=== PATIENT | male | born 1955 | race Caucasian/White ===

== ENCOUNTER 2022-08-27 15:57 | Inpatient (IN) | payer MEDICARE, SELFPAY ==
[2022-08-27 14:40] VITALS: BP 122/77; PULSE 70; RESP 18; TEMP 36.5; O2SAT 100
[2022-08-27 17:22] VITALS: BMI 16.0
[2022-08-27 18:47] LABS: Hematocrit 43.3 % (42.0-52.0); Hemoglobin 14.8 g/dl (14.0-18.0); Mean Corpuscular HGB Conc 34.2 g/dl (31.0-36.0); Mean Corpuscular Hemoglobin 31.1 pg (27.0-33.0); Mean Platelet Volume 10.2 fL (9.4-12.4); Platelet Count 205 X10*3/uL (160-400); Red Blood Count 4.76 X10*6/uL (4.60-5.80); Red Cell Distribution Width 12.1 % (11.0-16.0); White Blood Count 7.2 X10*3/uL (4.8-10.8)
[2022-08-27 19:09] LABS: Alanine Aminotransferase 18 U/L (0-40); Albumin Level 3.9 g/dL (3.5-5.0); Alkaline Phosphatase 72 U/L (39-117); Anion Gap 11 (12-20); Aspartate Amino Transferase 19 U/L (5-37); Bilirubin Total 0.7 mg/dL (0.0-1.0); Blood Urea Nitrogen 24 mg/dL (9-16); Calcium 9.2 mg/dL (8.4-10.2); Carbon Dioxide 32 mmol/L (22-29); Chloride 104 mmol/L (96-108); Creatinine Clr Calc Pharmacy 50.5; Estimated Glomerular Filt Rate > 60; Glucose Random 141 mg/dL (60-115); Phosphorus 3.4 mg/dL (2.7-4.5); Potassium 4.2 mmol/L (3.3-5.1); Sodium 143 mmol/L (135-145); Total Protein 6.2 g/dL (6.5-8.0)
--- NOTE | 2022-08-27 19:10 | PC.ADMIT ---
Pt. arrived on unit at 1630 via stretcher accompanied by 2 EMS. Pt. admitted from [facility]. Pt. A & O X 4. Signed CV. Pt. had cared for his mother until her 3 years ago, and [place] and plans to visit the [facility] when the pandemic hit and disrupted those plans. He states that there was then one strain after another and he grew increasingly hopeless and began to drink alcohol to self medicate and stopped eating and drinking for several weeks and lost > 30 lbs. . He reports he stopped drinking when he became too weak to be able to drive to obtain liquor and began to sleep round the clock. Pt. reports his brother grew concerned and called for a wellness check on him and that was when EMS brought him to the ED. He has not taken prescription medications Pt. reports that he had falls stumbling on stairs at home when he was his weakest, but none on flat surfaces and none since. He walks independently without assistive devices. Pt. denies active SI. He denies AH/VH. Cousin Sarah Godfrey. updated about pt's admit per his request.
[2022-08-27 19:30] VITALS: BP 87/57; PULSE 81; RESP 16; TEMP 36.2; O2SAT 100
[2022-08-27] MEDS: Mirtazapine 15 MG TABLET PO (19:57)
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
[2022-08-28 06:00] VITALS: BP 127/77; PULSE 100; RESP 14; TEMP 36.5; O2SAT 100
[2022-08-28 07:05] LABS: Alanine Aminotransferase 20 U/L (0-40); Albumin Level 3.4 g/dL (3.5-5.0); Alkaline Phosphatase 62 U/L (39-117); Anion Gap 10 (12-20); Aspartate Amino Transferase 24 U/L (5-37); Bilirubin Total 0.9 mg/dL (0.0-1.0); Blood Urea Nitrogen 22 mg/dL (9-16); Carbon Dioxide 30 mmol/L (22-29); Chloride 106 mmol/L (96-108); Cholesterol 219 mg/dL; Creatinine Clr Calc Pharmacy 50.5; Estimated Glomerular Filt Rate > 60; Glucose Fasting 82 mg/dL (60-99); HDL Cholesterol 42 mg/dL; LDL Cholesterol Calculated 151 mg/dl; Potassium 4.1 mmol/L (3.3-5.1); Sodium 142 mmol/L (135-145); Total Protein 5.5 g/dL (6.5-8.0); Triglycerides 134 mg/dL
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
[2022-08-28] MEDS: Atorvastatin Calcium 20 MG TABLET PO (09:33)
[2022-08-28] MEDS: Cholecalciferol (Vitamin D3) 25 MCG TABLET PO (10:18)
[2022-08-28] MEDS: Multivitamin TABLET 1 TAB PO (10:20)
[2022-08-28] MEDS: hydrOXYzine HCL 25 MG TABLET PO (13:31)
[2022-08-28 18:00] VITALS: BP 95/61; PULSE 82; RESP 18; TEMP 36.6; O2SAT 97
[2022-08-28] MEDS: Mirtazapine 15 MG TABLET PO (20:17)
--- NOTE | 2022-08-29 06:46 | P.PNPSI_ITS ---
Subjective Subjective Date of Service: 08/29/22 Reason For Visit: Unspecified depressive disorder Subjective Notes: Gutierrez Warning and Conditional Voluntary Interim History: The nursing staff reported that the patient had been mostly seclusive in his room, anxious and dysphoric. He was fully compliant with his Remeron at night, he slept 8 hours. On interview the patient remains dysphoric, with lack of energy he looks in a seated since he has lost more than 30 lb in the last weeks. I encouraged him to eat more. Later, the staff reported the patient was extremely anxious and we needed order a low dose of Klonopin. Psycho education to his condition was pro vided. Mental Status Exam Mental Status Exam Patient Appearance: Appropriate Patient Orientation: Person and Situation Level of Consciousness: Awake and Appropriate Patient Behavior: Guarded and Passive Mood Description: Withdrawn and Depressed Affect Description: Constricted Ability to Follow Directions: Good Speech Pattern: Clear Hallucinations: None Delusions: Paranoid Ideation Thought Process: Distracted and Slowed Thinking Thought Content: positive for [place], positive for Circumstantial and positive for Poverty of Content Judgement: Poor Diagnostics Vital Signs (24Hr): Vital Signs - 24 hr 08/28/22 18:00 Temperature 97.9 F Pulse Rate 82 Respiratory Rate 18 Blood Pressure 95/61 Pulse Oximetry 97 Oxygen Delivery Method Room Air BMI result Body Mass Index 16.0 Labs 08/27/22 18:40 08/28/22 06:25 Labs: Laboratory Results - last 48 hr 08/27/22 08/27/22 08/28/22 18:40 18:40 06:25 WBC 7.2 RBC 4.76 Hgb 14.8 Hct 43.3 MCV 91.0 MCH 31.1 MCHC 34.2 RDW 12.1 Plt Count 205 MPV 10.2 Absolute Nucleated RBC 0.000 Nucleated RBC % (auto) 0.0 Sodium 143 142 Potassium 4.2 4.1 Chloride 104 106 Carbon Dioxide 32 H 30 H Anion Gap 11 L 10 L BUN 24 H 22 H Creatinine 0.85 0.85 Estim Creat Clear Calc 50.5 50.5 Estimated GFR > 60 > 60 Random Glucose 141 H Fasting Glucose 82 Calcium 9.2 9.0 Phosphorus 3.4 Total Bilirubin 0.7 0.9 AST 19 24 ALT 18 20 Alkaline Phosphatase 72 62 Total Protein 6.2 L 5.5 L Albumin 3.9 3.4 L Triglycerides 134 Cholesterol 219 LDL Cholesterol, Calc 151 HDL Cholesterol 42 Medications Medications Current Medications Acetaminophen (Acetaminophen 325 Mg Tablet) 650 mg PO Q6H PRN PRN Reason: Headache/Pain Mild Scale (1-3) Al Hydroxide/Mg Hydroxide (Magnesium Hydrox/Alum Hydrox 30 Ml Oral.Susp) 30 ml PO Q6H PRN PRN Reason: Heartburn/Nausea Atorvastatin Calcium (Atorvastatin Calcium 20 Mg Tablet) 20 mg PO DAILY [facility] Last Admin: 08/28/22 09:33 Dose: 20 mg Calcium Carbonate (Calcium Carbonate 500 Mg Tablet) 250 mg PO DAILY [facility] Last Admin: 08/28/22 09:33 Dose: 250 mg Hydroxyzine HCl (Hydroxyzine Hcl 25 Mg Tablet) 25 mg PO Q6H PRN PRN Reason: Anxiety Last Admin: 08/28/22 13:31 Dose: 25 mg Magnesium Hydroxide (Milk Of Magnesia 30 Ml Oral.Susp) 30 ml PO DAILY PRN PRN Reason: Constipation Mirtazapine (Mirtazapine 15 Mg Tablet) 15 mg PO BEDTIME [facility] Last Admin: 08/28/22 20:17 Dose: 15 mg Multivitamins/Vitamin C (Multivitamin Tablet) 1 tab PO DAILY [facility] Last Admin: 08/28/22 10:20 Dose: 1 tab Trazodone HCl (Trazodone Hcl 50 Mg Tablet) 50 mg PO BEDTIME PRN PRN Reason: Insomnia Vitamin D (Cholecalciferol (Vitamin D3) 25 Mcg Tablet) 25 mcg PO DAILY [facility] Last Admin: 08/28/22 10:18 Dose: 25 mcg Allergies Allergies Allergy/AdvReac Type Severity Reaction Status Date / Time No Known Allergies Allergy Verified 08/27/22 16:20 Assessment & Plan Assessment & Plan (1) Major depressive disorder, recurrent: Status: Acute Code(s): F33.9 - Major depressive disorder, recurrent, unspecified (2) Malnutrition: Status: Acute Code(s): E46 - Unspecified protein-calorie malnutrition Plan Pt is a 67-year-old male with a PMH significant for depression, glaucoma, and HLD who is seen for admission H&P. Malnutrition Pt stopped eating 4 weeks ago, losing 40lbs Restarted eating and drinking one small meal a day 6 days ago CBC, CMB Monitor lytes, especially phosphorus, as pt is in danger of refeeding syndrome Nutrition consult Encourage daily ambulation to rebuild lower body strength HLD Pt has stopped taking statin Lipid panel Glaucoma Pt no longer on meds Pt not complaining of ocular pain or vision changes, seems stable F/U outpatient with PCP Mental Health As per psychiatry plan Thank you for allowing me to participate in the care of this pt. We will follow for now pending labs and nutrition consult. Psychiatry Plan 1. Gather collateral information. 2. Continue Remeron 15 mg p.o. q.h.s. to target insomnia, depression and poor appetite. 3. At this moment we will not consider to use antipsychotics since he has started with Remeron. 4. Klonopin 0.5 p.o. t.i.d. p.r.n. severe anxiety. Patient educated on: diagnosis Informed Consent: understands Reason for contiued inpatient stay Substantial Risk for: harm to self, inability to function, rapid decompensation and med/psych decompensation Time Spent With Patient Time: Total time managing care of this patient today _20___ minutes.
[2022-08-29 07:30] VITALS: BP 134/84; PULSE 80; RESP 15; TEMP 36.4; O2SAT 99
[2022-08-29] MEDS: Cholecalciferol (Vitamin D3) 25 MCG TABLET PO (10:54)
[2022-08-29] MEDS: Multivitamin TABLET 1 TAB PO (10:54)
[2022-08-29] MEDS: Atorvastatin Calcium 20 MG TABLET PO (10:54)
[2022-08-29] MEDS: clonazePAM 0.5 MG TABLET PO (11:44)
[2022-08-29 12:47] VITALS: BMI 16.0
--- NOTE | 2022-08-29 13:00 | MHC.CLN ---
NUTRITION CONSULT FOR CACHEXIA AND HX POOR PO. DIET=REGULAR. VISITED PATIENT AT LUNCH. EATING SANDWICH AND APPEARS TO BE EATING WELL THIS LUNCH. STATED THAT DOES NOT WANT ENSURE SUPPLEMENT. ADVISED THAT HE CAN ASK FOR IT IF HE WOULD LIKE. STOPPED EATING APPROX 4 WEEKS PRIOR TO ADMISSION. DRINKING ALCOHOL. BECAME TOO WEAK TO LEAVE HOUSE. REPORTS 30-40# WEIGHT LOSS. STARTED EATING ONE SMALL MEAL PER DAY 6 DAYS PRIOR TO ADMISSION. NUTRITION DX NON SEVERE MALNUTRITION IN THE CONTEXT OF SOCIAL BEHAVIORAL/ENVIRONMENTAL CIRCUMSTANCES. FOLLOW FOR INTAKE AT MEALS AND WEIGHT. PROVIDE SUPPLEMENT DESIRED BY PATIENT.
[2022-08-29 18:00] VITALS: BP 94/60; PULSE 77; RESP 18; TEMP 36.1; O2SAT 97
[2022-08-29] MEDS: Mirtazapine 15 MG TABLET PO (20:36)
[2022-08-30 06:00] VITALS: BP 135/62; PULSE 78; RESP 16; TEMP 36.8; O2SAT 98
--- NOTE | 2022-08-30 07:43 | P.PNPSI_ITS ---
Subjective Subjective Date of Service: 08/30/22 Reason For Visit: Unspecified depressive disorder Subjective Notes: Conditional Voluntary Interim History: The nursing staff reported the patient was very anxious yesterday he needed Klonopin p.r.n. that worked very well. Still, he looks very dysphoric with lack of energy. On rounds, the 7th grade social studies teacher reported that the patient fell from a fishing scan, his e-mail and he froze his social security benefits and cancel his cards. His brother who lives in [place] was contacted and stated that he has been very anxious and sometimes he is unable to perform his ADL less and they are planning to sell the house so he can not live in an assisted living facility. It is clear that he has some psychotic behavior due to his anxiety but we are not going to start any antipsychotic at this moment and we will monitor his improvement with Remeron and Klonopin. On interview the patient reports a slightly better sleep but still very sad and depressed. He is able to contract for safety in the facility. Mental Status Exam Mental Status Exam Patient Appearance: Appropriate Patient Orientation: Person and Situation Level of Consciousness: Awake and Appropriate Patient Behavior: Guarded and Passive Mood Description: Withdrawn and Depressed Affect Description: Constricted Patient Cognition Impaired: Yes Ability to Follow Directions: Good Speech Pattern: Clear Hallucinations: None Delusions: Not Present Thought Process: Distracted and Slowed Thinking Thought Content: positive for [place] and positive for Circumstantial Judgement: Fair Diagnostics Vital Signs (24Hr): Vital Signs - 24 hr 08/29/22 18:00 Temperature 96.9 F Pulse Rate 77 Respiratory Rate 18 Blood Pressure 94/60 Pulse Oximetry 97 Oxygen Delivery Method Room Air BMI result Body Mass Index 16.0 Labs 08/27/22 18:40 08/28/22 06:25 Medications Medications Current Medications Acetaminophen (Acetaminophen 325 Mg Tablet) 650 mg PO Q6H PRN PRN Reason: Headache/Pain Mild Scale (1-3) Al Hydroxide/Mg Hydroxide (Magnesium Hydrox/Alum Hydrox 30 Ml Oral.Susp) 30 ml PO Q6H PRN PRN Reason: Heartburn/Nausea Atorvastatin Calcium (Atorvastatin Calcium 20 Mg Tablet) 20 mg PO DAILY [facility] Last Admin: 08/29/22 10:54 Dose: 20 mg Calcium Carbonate (Calcium Carbonate 500 Mg Tablet) 250 mg PO DAILY [facility] Last Admin: 08/29/22 10:54 Dose: 250 mg Clonazepam (Clonazepam 0.5 Mg Tablet) 0.5 mg PO TID PRN PRN Reason: severe anxiety Last Admin: 08/29/22 11:44 Dose: 0.5 mg Hydroxyzine HCl (Hydroxyzine Hcl 25 Mg Tablet) 25 mg PO Q6H PRN PRN Reason: Anxiety Last Admin: 08/28/22 13:31 Dose: 25 mg Magnesium Hydroxide (Milk Of Magnesia 30 Ml Oral.Susp) 30 ml PO DAILY PRN PRN Reason: Constipation Mirtazapine (Mirtazapine 15 Mg Tablet) 15 mg PO BEDTIME [facility] Last Admin: 08/29/22 20:36 Dose: 15 mg Multivitamins/Vitamin C (Multivitamin Tablet) 1 tab PO DAILY [facility] Last Admin: 08/29/22 10:54 Dose: 1 tab Trazodone HCl (Trazodone Hcl 50 Mg Tablet) 50 mg PO BEDTIME PRN PRN Reason: Insomnia Vitamin D (Cholecalciferol (Vitamin D3) 25 Mcg Tablet) 25 mcg PO DAILY [facility] Last Admin: 08/29/22 10:54 Dose: 25 mcg Allergies Allergies Allergy/AdvReac Type Severity Reaction Status Date / Time No Known Allergies Allergy Verified 08/27/22 16:20 Assessment & Plan Assessment & Plan (1) Major depressive disorder, recurrent: Status: Acute Code(s): F33.9 - Major depressive disorder, recurrent, unspecified (2) Malnutrition: Status: Acute Code(s): E46 - Unspecified protein-calorie malnutrition Plan Pt is a 67-year-old male with a PMH significant for depression, glaucoma, and HLD who is seen for admission H&P. Malnutrition Pt stopped eating 4 weeks ago, losing 40lbs Restarted eating and drinking one small meal a day 6 days ago CBC, CMB Monitor lytes, especially phosphorus, as pt is in danger of refeeding syndrome Nutrition consult Encourage daily ambulation to rebuild lower body strength HLD Pt has stopped taking statin Lipid panel Glaucoma Pt no longer on meds Pt not complaining of ocular pain or vision changes, seems stable F/U outpatient with PCP Mental Health As per psychiatry plan Thank you for allowing me to participate in the care of this pt. We will follow for now pending labs and nutrition consult. Psychiatry Plan 1. Gather collateral information. 2. Continue Remeron 15 mg p.o. q.h.s. to target insomnia, depression and poor ap petite. 3. At this moment we will not consider to use antipsychotics since he has started with Remeron. 4. Klonopin 0.5 p.o. t.i.d. p.r.n. severe anxiety. Reason for contiued inpatient stay Substantial Risk for: inability to function, rapid decompensation and med/psych decompensation Time Spent With Patient Time: Total time managing care of this patient today __20__ minutes.
[2022-08-30] MEDS: Cholecalciferol (Vitamin D3) 25 MCG TABLET PO (09:07)
[2022-08-30] MEDS: Atorvastatin Calcium 20 MG TABLET PO (09:07)
[2022-08-30] MEDS: Multivitamin TABLET 1 TAB PO (09:08)
[2022-08-30 18:00] VITALS: BP 112/64; PULSE 76; RESP 18; TEMP 36.4; O2SAT 98
[2022-08-30] MEDS: Mirtazapine 15 MG TABLET PO (20:16)
[2022-08-31 06:00] VITALS: BP 144/87; PULSE 94; RESP 16; TEMP 36.4; O2SAT 97
--- NOTE | 2022-08-31 08:12 | HO.PSYCHPN ---
Subjective Subjective Date of Service: 08/31/22 Reason For Visit: Unspecified depressive disorder Subjective Notes: Conditional Voluntary Interim History: The nursing staff reported that the patient slept well last night, he had been fully compliant with treatment. The occupational therapist reported that he attended to groups but he is very dysphoric. The hospital social worker reported that she contact her brother and apparently the furnace of his house is broken and they are going to fix it. We were asked not to tell him so he will not be more wore it. It seems that he gets very obsessive and even delusional due to his anxiety. On interview the patient denies new symptoms he slept well last night still very dysphoric. Mental Status Exam Mental Status Exam Patient Appearance: Appropriate Patient Orientation: Person, Place and Situation Level of Consciousness: Awake and Appropriate Patient Behavior: Guarded and Passive Mood Description: Withdrawn and Depressed Affect Description: Constricted Patient Cognition Impaired: Yes Ability to Follow Directions: Good Speech Pattern: Clear Hallucinations: None Delusions: Paranoid Ideation Thought Process: Distracted, Linear and Slowed Thinking Thought Content: positive for [place], positive for Circumstantial and positive for Poverty of Content Judgement: Fair Diagnostics Vital Signs (24Hr): Vital Signs - 24 hr 08/30/22 18:00 Temperature 97.5 F Pulse Rate 76 Respiratory Rate 18 Blood Pressure 112/64 Pulse Oximetry 98 Oxygen Delivery Method Room Air BMI result Body Mass Index 16.0 Labs 08/27/22 18:40 08/28/22 06:25 Medications Medications Current Medications Acetaminophen (Acetaminophen 325 Mg Tablet) 650 mg PO Q6H PRN PRN Reason: Headache/Pain Mild Scale (1-3) Al Hydroxide/Mg Hydroxide (Magnesium Hydrox/Alum Hydrox 30 Ml Oral.Susp) 30 ml PO Q6H PRN PRN Reason: Heartburn/Nausea Atorvastatin Calcium (Atorvastatin Calcium 20 Mg Tablet) 20 mg PO DAILY [facility] Last Admin: 08/30/22 09:07 Dose: 20 mg Calcium Carbonate (Calcium Carbonate 500 Mg Tablet) 250 mg PO DAILY [facility] Last Admin: 08/30/22 09:06 Dose: 250 mg Clonazepam (Clonazepam 0.5 Mg Tablet) 0.5 mg PO TID PRN PRN Reason: severe anxiety Last Admin: 08/29/22 11:44 Dose: 0.5 mg Hydroxyzine HCl (Hydroxyzine Hcl 25 Mg Tablet) 25 mg PO Q6H PRN PRN Reason: Anxiety Last Admin: 08/28/22 13:31 Dose: 25 mg Magnesium Hydroxide (Milk Of Magnesia 30 Ml Oral.Susp) 30 ml PO DAILY PRN PRN Reason: Constipation Mirtazapine (Mirtazapine 15 Mg Tablet) 15 mg PO BEDTIME [facility] Last Admin: 08/30/22 20:16 Dose: 15 mg Multivitamins/Vitamin C (Multivitamin Tablet) 1 tab PO DAILY [facility] Last Admin: 08/30/22 09:08 Dose: 1 tab Trazodone HCl (Trazodone Hcl 50 Mg Tablet) 50 mg PO BEDTIME PRN PRN Reason: Insomnia Vitamin D (Cholecalciferol (Vitamin D3) 25 Mcg Tablet) 25 mcg PO DAILY [facility] Last Admin: 08/30/22 09:07 Dose: 25 mcg Allergies Allergies Allergy/AdvReac Type Severity Reaction Status Date / Time No Known Allergies Allergy Verified 08/27/22 16:20 Assessment & Plan Assessment & Plan (1) Major depressive disorder, recurrent: Status: Acute Code(s): F33.9 - Major depressive disorder, recurrent, unspecified (2) Malnutrition: Status: Acute Code(s): E46 - Unspecified protein-calorie malnutrition Plan Pt is a 67-year-old male with a PMH significant for depression, glaucoma, and HLD who is seen for admission H&P. Malnutrition Pt stopped eating 4 weeks ago, losing 40lbs Restarted eating and drinking one small meal a day 6 days ago CBC, CMB Monitor lytes, especially phosphorus, as pt is in danger of refeeding syndrome Nutrition consult Encourage daily ambulation to rebuild lower body strength HLD Pt has stopped taking statin Lipid panel Glaucoma Pt no longer on meds Pt not complaining of ocular pain or vision changes, seems stable F/U outpatient with PCP Mental Health As per psychiatry plan Thank you for allowing me to participate in the care of this pt. We will follow for now pending labs and nutrition consult. Psychiatry Plan 1. Gather collateral information. 2. Continue Remeron 15 mg p.o. q.h.s. to target insomnia, depression and poor appetite. 3. At this moment we will not consider to use antipsychotics since he has started with Remeron. 4. Klonopin 0.5 p.o. t.i.d. p.r.n. severe anxiety. Reason for contiued inpatient stay Substantial Risk for: inability to function, rapid decompensation and med/psych decompensation Time Spent With Patient Time: Total time managing care of this patient today __20__ minutes.
[2022-08-31] MEDS: Atorvastatin Calcium 20 MG TABLET PO (11:05)
[2022-08-31] MEDS: Cholecalciferol (Vitamin D3) 25 MCG TABLET PO (11:06)
[2022-08-31] MEDS: Multivitamin TABLET 1 TAB PO (11:06)
--- NOTE | 2022-08-31 13:35 | MHC.CLN ---
NUTRITION DIET=REGULAR. VISITED PATIENT AT LUNCH. STATED THAT ATE A TUNA SANDWICH. STATED THAT DOES NOT WANT ENSURE SUPPLEMENT. NUTRITION DX NON SEVERE MALNUTRITION IN THE CONTEXT OF SOCIAL BEHAVIORAL/ENVIRONMENTAL CIRCUMSTANCES. FOLLOW FOR INTAKE AND WEIGHT.
[2022-08-31 18:00] VITALS: BP 110/60; PULSE 85; RESP 16; TEMP 36.3; O2SAT 100
[2022-08-31] MEDS: Mirtazapine 15 MG TABLET PO (21:10)
[2022-09-01 06:00] VITALS: BP 132/80; PULSE 92; RESP 16; TEMP 36.4; O2SAT 92
[2022-09-01 07:00] VITALS: BMI 16.7
--- NOTE | 2022-09-01 07:55 | P.PNPSI_ITS ---
Subjective Subjective Date of Service: 09/01/22 Reason For Visit: Unspecified depressive disorder Subjective Notes: Conditional Voluntary Interim History: The nursing staff reported the patient had been compliant with treatment, he slept well last night. The staff has noticed that he attends to some groups and he participates, his anxiety looks a little better. The social security specialist reported that his brother from [place] is making arrangements to fix the furnace of the house. We will have a family meeting tomorrow over the phone or Zoom. On interview the patient reports improvement but still he is anxious. Mental Status Exam Mental Status Exam Patient Appearance: Appropriate Patient Orientation: Person and Situation Level of Consciousness: Awake and Appropriate Patient Behavior: Guarded and Passive Mood Description: Depressed Affect Description: Constricted Patient Cognition Impaired: Yes Ability to Follow Directions: Good Speech Pattern: Clear Hallucinations: None Delusions: Paranoid Ideation Thought Process: Evasive and Slowed Thinking Thought Content: positive for [place], positive for Circumstantial and positive for Poverty of Content Judgement: Fair Diagnostics Vital Signs (24Hr): Vital Signs - 24 hr 08/31/22 18:00 Temperature 97.4 F Pulse Rate 85 Respiratory Rate 16 Blood Pressure 110/60 Pulse Oximetry 100 Oxygen Delivery Method Room Air BMI result Body Mass Index 16.0 Labs 08/27/22 18:40 08/28/22 06:25 Medications Medications Current Medications Acetaminophen (Acetaminophen 325 Mg Tablet) 650 mg PO Q6H PRN PRN Reason: Headache/Pain Mild Scale (1-3) Al Hydroxide/Mg Hydroxide (Magnesium Hydrox/Alum Hydrox 30 Ml Oral.Susp) 30 ml PO Q6H PRN PRN Reason: Heartburn/Nausea Atorvastatin Calcium (Atorvastatin Calcium 20 Mg Tablet) 20 mg PO DAILY [facility] Last Admin: 08/31/22 11:05 Dose: 20 mg Calcium Carbonate (Calcium Carbonate 500 Mg Tablet) 250 mg PO DAILY [facility] Last Admin: 08/31/22 11:06 Dose: 250 mg Clonazepam (Clonazepam 0.5 Mg Tablet) 0.5 mg PO TID PRN PRN Reason: severe anxiety Last Admin: 08/29/22 11:44 Dose: 0.5 mg Hydroxyzine HCl (Hydroxyzine Hcl 25 Mg Tablet) 25 mg PO Q6H PRN PRN Reason: Anxiety Last Admin: 08/28/22 13:31 Dose: 25 mg Magnesium Hydroxide (Milk Of Magnesia 30 Ml Oral.Susp) 30 ml PO DAILY PRN PRN Reason: Constipation Mirtazapine (Mirtazapine 15 Mg Tablet) 15 mg PO BEDTIME [facility] Last Admin: 08/31/22 21:10 Dose: 15 mg Multivitamins/Vitamin C (Multivitamin Tablet) 1 tab PO DAILY [facility] Last Admin: 08/31/22 11:06 Dose: 1 tab Trazodone HCl (Trazodone Hcl 50 Mg Tablet) 50 mg PO BEDTIME PRN PRN Reason: Insomnia Vitamin D (Cholecalciferol (Vitamin D3) 25 Mcg Tablet) 25 mcg PO DAILY [facility] Last Admin: 08/31/22 11:06 Dose: 25 mcg Allergies Allergies Allergy/AdvReac Type Severity Reaction Status Date / Time No Known Allergies Allergy Verified 08/27/22 16:20 Assessment & Plan Assessment & Plan (1) Major depressive disorder, recurrent: Status: Acute Code(s): F33.9 - Major depressive disorder, recurrent, unspecified (2) Malnutrition: Status: Acute Code(s): E46 - Unspecified protein-calorie malnutrition Plan Pt is a 67-year-old male with a PMH significant for depression, glaucoma, and HLD who is seen for admission H&P. Malnutrition Pt stopped eating 4 weeks ago, losing 40lbs Restarted eating and drinking one small meal a day 6 days ago CBC, CMB Monitor lytes, especially phosphorus, as pt is in danger of refeeding syndrome Nutrition consult Encourage daily ambulation to rebuild lower body strength HLD Pt has stopped taking statin Lipid panel Glaucoma Pt no longer on meds Pt not complaining of ocular pain or vision changes, seems stable F/U outpatient with PCP Mental Health As per psychiatry plan Thank you for allowing me to participate in the care of this pt. We will follow for now pending labs and nutrition consult. Psychiatry Plan 1. Gather collateral information. 2. Continue Remeron 15 mg p.o. q.h.s. to target insomnia, depression and poor appetite. 3. At this moment we will not consider to use antipsychotics since he has started with Remeron. 4. Klonopin 0.5 p.o. t.i.d. p.r.n. severe anxiety. Reason for contiued inpatient stay Substantial Risk for: inability to function, rapid decompensation and med/psych decompensation Time Spent With Patient Time: Total time managing care of this patient today __20__ minutes.
[2022-09-01] MEDS: Multivitamin TABLET 1 TAB PO (09:13)
[2022-09-01] MEDS: Atorvastatin Calcium 20 MG TABLET PO (09:13)
[2022-09-01] MEDS: Cholecalciferol (Vitamin D3) 25 MCG TABLET PO (09:15)
[2022-09-01] MEDS: clonazePAM 0.5 MG TABLET PO (14:58)
[2022-09-01 18:00] VITALS: BP 110/70; PULSE 69; RESP 18; TEMP 36.1; O2SAT 100
[2022-09-01] MEDS: Mirtazapine 15 MG TABLET PO (20:20)
[2022-09-02 07:30] VITALS: BP 123/71; PULSE 93; RESP 18; TEMP 36.4; O2SAT 100
[2022-09-02] MEDS: Atorvastatin Calcium 20 MG TABLET PO (09:44)
[2022-09-02] MEDS: Multivitamin TABLET 1 TAB PO (09:45)
[2022-09-02] MEDS: Cholecalciferol (Vitamin D3) 25 MCG TABLET PO (09:45)
--- NOTE | 2022-09-02 14:31 | P.PNPSI_ITS ---
Subjective Subjective Date of Service: 09/02/22 Reason For Visit: Unspecified depressive disorder Subjective Notes: Conditional Voluntary Interim History: The nursing staff reported the patient requested Klonopin yesterday. He was seen more visible in the unit, participating in groups but very anxious. The psychiatric social worker reported that the patient was so anxious that he could not even answer or fill paperwork. His brother reported that they are going to try to help him. They had a family meeting over the phone today Today, he was assessed and he reported that he is less anxious but still nonfunctional. He agreed to change Klonopin as standing and keep the p.r.n. Mental Status Exam Mental Status Exam Patient Appearance: Appropriate Patient Orientation: Person and Situation Level of Consciousness: Awake and Appropriate Patient Behavior: Guarded and Passive Mood Description: Withdrawn Affect Description: Constricted Patient Cognition Impaired: Yes Ability to Follow Directions: Good Speech Pattern: Clear Hallucinations: None Delusions: Not Present Thought Process: Distracted and Slowed Thinking Thought Content: positive for Thought Blocking Judgement: Poor Diagnostics Vital Signs (24Hr): Vital Signs - 24 hr 09/01/22 18:00 09/02/22 07:30 Temperature 96.9 F 97.5 F Pulse Rate 69 93 Respiratory Rate 18 18 Blood Pressure 110/70 123/71 Pulse Oximetry 100 100 Oxygen Delivery Method Room Air Room Air BMI result Body Mass Index 16.7 Labs 08/27/22 18:40 08/28/22 06:25 Medications Medications Current Medications Acetaminophen (Acetaminophen 325 Mg Tablet) 650 mg PO Q6H PRN PRN Reason: Headache/Pain Mild Scale (1-3) Al Hydroxide/Mg Hydroxide (Magnesium Hydrox/Alum Hydrox 30 Ml Oral.Susp) 30 ml PO Q6H PRN PRN Reason: Heartburn/Nausea Atorvastatin Calcium (Atorvastatin Calcium 20 Mg Tablet) 20 mg PO DAILY [facility] Last Admin: 09/02/22 09:44 Dose: 20 mg Calcium Carbonate (Calcium Carbonate 500 Mg Tablet) 250 mg PO DAILY [facility] Last Admin: 09/02/22 09:44 Dose: 250 mg Clonazepam (Clonazepam 0.5 Mg Tablet) 0.5 mg PO TID PRN PRN Reason: severe anxiety Last Admin: 09/01/22 14:58 Dose: 0.5 mg Hydroxyzine HCl (Hydroxyzine Hcl 25 Mg Tablet) 25 mg PO Q6H PRN PRN Reason: Anxiety Last Admin: 08/28/22 13:31 Dose: 25 mg Magnesium Hydroxide (Milk Of Magnesia 30 Ml Oral.Susp) 30 ml PO DAILY PRN PRN Reason: Constipation Mirtazapine (Mirtazapine 15 Mg Tablet) 15 mg PO BEDTIME [facility] Last Admin: 09/01/22 20:20 Dose: 15 mg Multivitamins/Vitamin C (Multivitamin Tablet) 1 tab PO DAILY [facility] Last Admin: 09/02/22 09:45 Dose: 1 tab Trazodone HCl (Trazodone Hcl 50 Mg Tablet) 50 mg PO BEDTIME PRN PRN Reason: Insomnia Vitamin D (Cholecalciferol (Vitamin D3) 25 Mcg Tablet) 25 mcg PO DAILY [facility] Last Admin: 09/02/22 09:45 Dose: 25 mcg Allergies Allergies Allergy/AdvReac Type Severity Reaction Status Date / Time No Known Allergies Allergy Verified 08/27/22 16:20 Assessment & Plan Assessment & Plan (1) Major depressive disorder, recurrent: Status: Acute Code(s): F33.9 - Major depressive disorder, recurrent, unspecified (2) Malnutrition: Status: Acute Code(s): E46 - Unspecified protein-calorie malnutrition Plan Pt is a 67-year-old male with a PMH significant for depression, glaucoma, and HLD who is seen for admission H&P. Malnutrition Pt stopped eating 4 weeks ago, losing 40lbs Restarted eating and drinking one small meal a day 6 days ago CBC, CMB Monitor lytes, especially phosphorus, as pt is in danger of refeeding syndrome Nutrition consult Encourage daily ambulation to rebuild lower body strength HLD Pt has stopped taking statin Lipid panel Glaucoma Pt no longer on meds Pt not complaining of ocular pain or vision changes, seems stable F/U outpatient with PCP Mental Health As per psychiatry plan Thank you for allowing me to participate in the care of this pt. We will follow for now pending labs and nutrition consult. Psychiatry Plan 1. Gather collateral information. 2. Continue Remeron 15 mg p.o. q.h.s. to target insomnia, depression and poor appetite. 3. At this moment we will not consider to use antipsychotics since he has started with Remeron. 4. Klonopin 0.5 p.o. t.i.d. p.r.n. severe anxiety. 5. Klonopin 0.25 p.o. t.i.d. standing Reason for contiued inpatient stay Substantial Risk for: inability to function, rapid decompensation and med/psych decompensation Time Spent With Patient Time: Total time managing care of this patient today __20__ minutes.
--- NOTE | 2022-09-02 15:09 | MHC.CLN ---
F/U DIET=REGULAR. VISITED PATIENT AT LUNCH. APPEARS TO BE ORDERING SMALL AMOUNTS OF FOOD. ATE 100% OF FOODS AT LUNCH. SHOWS FAVORABLE WEIGHT GAIN SINCE ADMISSION, +4.7%. FOLLOW FOR INTAKE AND WEIGHT.
[2022-09-02 18:00] VITALS: BP 140/74; PULSE 90; RESP 18; TEMP 36.4; O2SAT 97
[2022-09-02] MEDS: Mirtazapine 15 MG TABLET PO (21:03)
[2022-09-03] MEDS: Atorvastatin Calcium 20 MG TABLET PO (09:25)
[2022-09-03] MEDS: Multivitamin TABLET 1 TAB PO (09:26)
[2022-09-03] MEDS: Cholecalciferol (Vitamin D3) 25 MCG TABLET PO (09:26)
[2022-09-03 09:29] VITALS: BP 127/70; PULSE 89; RESP 18; TEMP 36.4; O2SAT 99
--- NOTE | 2022-09-03 11:56 | P.PNPSI_ITS ---
Subjective Subjective Date of Service: 09/03/22 Reason For Visit: Unspecified depressive disorder Interim History: pt found reading and edward pepper book in the milieu. states he is doing a lot better. denies SI. no requests or complaints. per staff, depressed and anxious. slept 8 hours. ambivalent relationship to food. Mental Status Exam Mental Status Exam Patient Appearance: Appropriate Patient Orientation: Person and Situation Level of Consciousness: Awake and Appropriate Patient Behavior: Guarded and Passive Mood Description: Withdrawn Affect Description: Constricted Patient Cognition Impaired: Yes Ability to Follow Directions: Good Speech Pattern: Clear Hallucinations: None Delusions: Not Present Thought Process: Distracted and Slowed Thinking Thought Content: positive for Thought Blocking Judgement: Poor Diagnostics Vital Signs (24Hr): Vital Signs - 24 hr 09/02/22 18:00 09/03/22 09:29 Temperature 97.5 F 97.5 F Pulse Rate 90 89 Respiratory Rate 18 18 Blood Pressure 140/74 H 127/70 Pulse Oximetry 97 99 Oxygen Delivery Method Room Air Room Air BMI result Body Mass Index 16.7 Labs 08/27/22 18:40 08/28/22 06:25 Medications Medications Current Medications Acetaminophen (Acetaminophen 325 Mg Tablet) 650 mg PO Q6H PRN PRN Reason: Headache/Pain Mild Scale (1-3) Al Hydroxide/Mg Hydroxide (Magnesium Hydrox/Alum Hydrox 30 Ml Oral.Susp) 30 ml PO Q6H PRN PRN Reason: Heartburn/Nausea Atorvastatin Calcium (Atorvastatin Calcium 20 Mg Tablet) 20 mg PO DAILY [facility] Last Admin: 09/03/22 09:25 Dose: 20 mg Calcium Carbonate (Calcium Carbonate 500 Mg Tablet) 250 mg PO DAILY [facility] Last Admin: 09/03/22 09:25 Dose: 250 mg Clonazepam (Clonazepam 0.5 Mg Tablet) 0.5 mg PO TID PRN PRN Reason: severe anxiety Last Admin: 09/01/22 14:58 Dose: 0.5 mg Clonazepam (Clonazepam 0.125 Mg Tab.Rapdis) 0.25 mg PO TID [facility] Last Admin: 09/03/22 09:25 Dose: 0.25 mg Hydroxyzine HCl (Hydroxyzine Hcl 25 Mg Tablet) 25 mg PO Q6H PRN PRN Reason: Anxiety Last Admin: 08/28/22 13:31 Dose: 25 mg Magnesium Hydroxide (Milk Of Magnesia 30 Ml Oral.Susp) 30 ml PO DAILY PRN PRN Reason: Constipation Mirtazapine (Mirtazapine 15 Mg Tablet) 15 mg PO BEDTIME [facility] Last Admin: 09/02/22 21:03 Dose: 15 mg Multivitamins/Vitamin C (Multivitamin Tablet) 1 tab PO DAILY [facility] Last Admin: 09/03/22 09:26 Dose: 1 tab Trazodone HCl (Trazodone Hcl 50 Mg Tablet) 50 mg PO BEDTIME PRN PRN Reason: Insomnia Vitamin D (Cholecalciferol (Vitamin D3) 25 Mcg Tablet) 25 mcg PO DAILY [facility] Last Admin: 09/03/22 09:26 Dose: 25 mcg Allergies Allergies Allergy/AdvReac Type Severity Reaction Status Date / Time No Known Allergies Allergy Verified 08/27/22 16:20 Assessment & Plan Assessment & Plan (1) Major depressive disorder, recurrent: Status: Acute Code(s): F33.9 - Major depressive disorder, recurrent, unspecified (2) Malnutrition: Status: Acute Code(s): E46 - Unspecified protein-calorie malnutrition Plan Pt is a 67-year-old male with a PMH significant for depression, glaucoma, and HLD who is seen for admission H&P. Malnutrition Pt stopped eating 4 weeks ago, losing 40lbs Restarted eating and drinking one small meal a day 6 days ago CBC, CMB Monitor lytes, especially phosphorus, as pt is in danger of refeeding syndrome Nutrition consult Encourage daily ambulation to rebuild lower body strength HLD Pt has stopped taking statin Lipid panel Glaucoma Pt no longer on meds Pt not complaining of ocular pain or vision changes, seems stable F/U outpatient with PCP Mental Health As per psychiatry plan Thank you for allowing me to participate in the care of this pt. We will follow for now pending labs and nutrition consult. Psychiatry Plan 1. Gather collateral information. 2. Continue Remeron 15 mg p.o. q.h.s. to target insomnia, depression and poor appetite. 3. At this moment we will not consider to use antipsychotics since he has started with Remeron. 4. Klonopin 0.5 p.o. t.i.d. p.r.n. severe anxiety. 5. Klonopin 0.25 p.o. t.i.d. standing 2/4: no change in mgmt. feeling a lot better, denies SI. Reason for contiued inpatient stay Substantial Risk for: inability to function and rapid decompensation Time Spent With Patient Time: Total time managing care of this patient today ____ minutes.
[2022-09-03 18:00] VITALS: BP 120/71; PULSE 74; RESP 18; TEMP 36.6; O2SAT 100
[2022-09-03] MEDS: Mirtazapine 15 MG TABLET PO (20:34)
[2022-09-04 06:00] VITALS: BP 129/70; PULSE 79; RESP 18; TEMP 35.9; O2SAT 98
[2022-09-04] MEDS: Atorvastatin Calcium 20 MG TABLET PO (08:54)
[2022-09-04] MEDS: Cholecalciferol (Vitamin D3) 25 MCG TABLET PO (08:54)
[2022-09-04] MEDS: Multivitamin TABLET 1 TAB PO (08:55)
--- NOTE | 2022-09-04 11:11 | HO.PSYCHPN ---
Subjective Subjective Date of Service: 09/04/22 Reason For Visit: Unspecified depressive disorder Interim History: calm, cooperative. discuss group this morning, learning about dumplings and sampling some. states he is doing OK, no questions or complaints. per staff, very anxious. klonopin scheduled and PRN. taking meds, eating well. slept well overnight. Mental Status Exam Mental Status Exam Patient Appearance: Appropriate Patient Orientation: Person and Situation Level of Consciousness: Awake and Appropriate Patient Behavior: Guarded and Passive Mood Description: Withdrawn Affect Description: Constricted Patient Cognition Impaired: Yes Ability to Follow Directions: Good Speech Pattern: Clear Hallucinations: None Delusions: Not Present Thought Process: Distracted and Slowed Thinking Thought Content: positive for Thought Blocking Judgement: Poor Diagnostics Vital Signs (24Hr): Vital Signs - 24 hr 09/03/22 18:00 09/04/22 06:00 Temperature 97.9 F 96.7 F L Pulse Rate 74 79 Respiratory Rate 18 18 Blood Pressure 120/71 129/70 Pulse Oximetry 100 98 Oxygen Delivery Method Room Air Room Air BMI result Body Mass Index 16.7 Labs 08/27/22 18:40 08/28/22 06:25 Medications Medications Current Medications Acetaminophen (Acetaminophen 325 Mg Tablet) 650 mg PO Q6H PRN PRN Reason: Headache/Pain Mild Scale (1-3) Al Hydroxide/Mg Hydroxide (Magnesium Hydrox/Alum Hydrox 30 Ml Oral.Susp) 30 ml PO Q6H PRN PRN Reason: Heartburn/Nausea Atorvastatin Calcium (Atorvastatin Calcium 20 Mg Tablet) 20 mg PO DAILY [facility] Last Admin: 09/04/22 08:54 Dose: 20 mg Calcium Carbonate (Calcium Carbonate 500 Mg Tablet) 250 mg PO DAILY [facility] Last Admin: 09/04/22 08:55 Dose: 250 mg Clonazepam (Clonazepam 0.5 Mg Tablet) 0.5 mg PO TID PRN PRN Reason: severe anxiety Last Admin: 09/01/22 14:58 Dose: 0.5 mg Clonazepam (Clonazepam 0.125 Mg Tab.Rapdis) 0.25 mg PO TID [facility] Last Admin: 09/04/22 08:54 Dose: 0.25 mg Hydroxyzine HCl (Hydroxyzine Hcl 25 Mg Tablet) 25 mg PO Q6H PRN PRN Reason: Anxiety Last Admin: 08/28/22 13:31 Dose: 25 mg Magnesium Hydroxide (Milk Of Magnesia 30 Ml Oral.Susp) 30 ml PO DAILY PRN PRN Reason: Constipation Mirtazapine (Mirtazapine 15 Mg Tablet) 15 mg PO BEDTIME [facility] Last Admin: 09/03/22 20:34 Dose: 15 mg Multivitamins/Vitamin C (Multivitamin Tablet) 1 tab PO DAILY [facility] Last Admin: 09/04/22 08:55 Dose: 1 tab Trazodone HCl (Trazodone Hcl 50 Mg Tablet) 50 mg PO BEDTIME PRN PRN Reason: Insomnia Vitamin D (Cholecalciferol (Vitamin D3) 25 Mcg Tablet) 25 mcg PO DAILY [facility] Last Admin: 09/04/22 08:54 Dose: 25 mcg Allergies Allergies Allergy/AdvReac Type Severity Reaction Status Date / Time No Known Allergies Allergy Verified 08/27/22 16:20 Assessment & Plan Assessment & Plan (1) Major depressive disorder, recurrent: Status: Acute Code(s): F33.9 - Major depressive disorder, recurrent, unspecified (2) Malnutrition: Status: Acute Code(s): E46 - Unspecified protein-calorie malnutrition Plan Pt is a 67-year-old male with a PMH significant for depression, glaucoma, and HLD who is seen for admission H&P. Malnutrition Pt stopped eating 4 weeks ago, losing 40lbs Restarted eating and drinking one small meal a day 6 days ago CBC, CMB Monitor lytes, especially phosphorus, as pt is in danger of refeeding syndrome Nutrition consult Encourage daily ambulation to rebuild lower body strength HLD Pt has stopped taking statin Lipid panel Glaucoma Pt no longer on meds Pt not complaining of ocular pain or vision changes, seems stable F/U outpatient with PCP Mental Health As per psychiatry plan Thank you for allowing me to participate in the care of this pt. We will follow for now pending labs and nutrition consult. Psychiatry Plan 1. Gather collateral information. 2. Continue Remeron 15 mg p.o. q.h.s. to target insomnia, depression and poor appetite. 3. At this moment we will not consider to use antipsychotics since he has started with Remeron. 4. Klonopin 0.5 p.o. t.i.d. p.r.n. severe anxiety. 5. Klonopin 0.25 p.o. t.i.d. standing 2/4: no change in mgmt. feeling a lot better, denies SI. 09/04: no change to mgmt. stable. Reason for contiued inpatient stay Substantial Risk for: inability to function and rapid decompensation Time Spent With Patient Time: Total time managing care of this patient today ____ minutes.
[2022-09-04] MEDS: Mirtazapine 15 MG TABLET PO (21:26)
[2022-09-04 21:36] VITALS: BP 106/55; PULSE 79; RESP 18; TEMP 36.9; O2SAT 97
[2022-09-05 10:30] VITALS: BP 130/69; PULSE 85; RESP 16; TEMP 35.8; O2SAT 99
[2022-09-05] MEDS: Cholecalciferol (Vitamin D3) 25 MCG TABLET PO (10:47)
[2022-09-05] MEDS: Multivitamin TABLET 1 TAB PO (10:47)
[2022-09-05] MEDS: Atorvastatin Calcium 20 MG TABLET PO (10:49)
--- NOTE | 2022-09-05 12:08 | MHC.CLN ---
F/U DIET=REGULAR. OBSERVED PATIENT AT [facility] EATING INDEPENDENTLY. APPEARS TO BE ORDERING SMALL AMOUNTS OF FOOD BUT EATING WELL. FOLLOW FOR INTAKE AND WEIGHT. RD TO FOLLOW WEEKLY.
--- NOTE | 2022-09-05 12:36 | P.PNPSI_ITS ---
Subjective Subjective Date of Service: 09/05/22 Reason For Visit: Unspecified depressive disorder Subjective Notes: Conditional Voluntary Interim History: The nursing staff reported the patient had been eating fairly well, she he denies anxiety or depression and the staff has noticed that he tries to this structure. The social work program coordinator reported that she had a meeting with her brother last Monday it seems the patient gets overwhelmed with the choices and the social work program coordinator has or ready started referrals for outpatient services. The occupational therapy teams reported that he is doing much better in groups. On interview the patient reports improvement of depression and anxiety but still symptomatic. Mental Status Exam Mental Status Exam Patient Appearance: Well Grooomed and Appropriate Patient Orientation: Person and Situation Level of Consciousness: Awake and Appropriate Patient Behavior: Cooperative Mood Description: Constricted Affect Description: Calm Patient Cognition Impaired: Yes Ability to Follow Directions: Good Speech Pattern: Clear Hallucinations: None Delusions: Not Present Thought Process: Linear Thought Content: positive for Circumstantial Judgement: Fair Diagnostics Vital Signs (24Hr): Vital Signs - 24 hr 09/04/22 21:36 09/05/22 10:30 Temperature 98.4 F 96.4 F L Pulse Rate 79 85 Respiratory Rate 18 16 Blood Pressure 106/55 L 130/69 Pulse Oximetry 97 99 Oxygen Delivery Method Room Air Room Air BMI result Body Mass Index 16.7 Labs 08/27/22 18:40 08/28/22 06:25 Medications Medications Current Medications Acetaminophen (Acetaminophen 325 Mg Tablet) 650 mg PO Q6H PRN PRN Reason: Headache/Pain Mild Scale (1-3) Al Hydroxide/Mg Hydroxide (Magnesium Hydrox/Alum Hydrox 30 Ml Oral.Susp) 30 ml PO Q6H PRN PRN Reason: Heartburn/Nausea Atorvastatin Calcium (Atorvastatin Calcium 20 Mg Tablet) 20 mg PO DAILY [facility] Last Admin: 09/05/22 10:49 Dose: 20 mg Calcium Carbonate (Calcium Carbonate 500 Mg Tablet) 250 mg PO DAILY [facility] Last Admin: 09/05/22 10:47 Dose: 250 mg Clonazepam (Clonazepam 0.5 Mg Tablet) 0.5 mg PO TID PRN PRN Reason: severe anxiety Last Admin: 09/01/22 14:58 Dose: 0.5 mg Clonazepam (Clonazepam 0.125 Mg Tab.Rapdis) 0.25 mg PO TID [facility] Last Admin: 09/05/22 10:47 Dose: 0.25 mg Hydroxyzine HCl (Hydroxyzine Hcl 25 Mg Tablet) 25 mg PO Q6H PRN PRN Reason: Anxiety Last Admin: 08/28/22 13:31 Dose: 25 mg Magnesium Hydroxide (Milk Of Magnesia 30 Ml Oral.Susp) 30 ml PO DAILY PRN PRN Reason: Constipation Mirtazapine (Mirtazapine 15 Mg Tablet) 15 mg PO BEDTIME [facility] Last Admin: 09/04/22 21:26 Dose: 15 mg Multivitamins/Vitamin C (Multivitamin Tablet) 1 tab PO DAILY [facility] Last Admin: 09/05/22 10:47 Dose: 1 tab Trazodone HCl (Trazodone Hcl 50 Mg Tablet) 50 mg PO BEDTIME PRN PRN Reason: Insomnia Vitamin D (Cholecalciferol (Vitamin D3) 25 Mcg Tablet) 25 mcg PO DAILY [facility] Last Admin: 09/05/22 10:47 Dose: 25 mcg Allergies Allergies Allergy/AdvReac Type Severity Reaction Status Date / Time No Known Allergies Allergy Verified 08/27/22 16:20 Assessment & Plan Assessment & Plan (1) Major depressive disorder, recurrent: Status: Acute Code(s): F33.9 - Major depressive disorder, recurrent, unspecified (2) Malnutrition: Status: Acute Code(s): E46 - Unspecified protein-calorie malnutrition Plan Pt is a 67-year-old male with a PMH significant for depression, glaucoma, and HLD who is seen for admission H&P. Malnutrition Pt stopped eating 4 weeks ago, losing 40lbs Restarted eating and drinking one small meal a day 6 days ago CBC, CMB Monitor lytes, especially phosphorus, as pt is in danger of refeeding syndrome Nutrition consult Encourage daily ambulation to rebuild lower body strength HLD Pt has stopped taking statin Lipid panel Glaucoma Pt no longer on meds Pt not complaining of ocular pain or vision changes, seems stable F/U outpatient with PCP Mental Health As per psychiatry plan Thank you for allowing me to participate in the care of this pt. We will follow for now pending labs and nutrition consult. Psychiatry Plan 1. Gather collateral information. 2. Continue Remeron 15 mg p.o. q.h.s. to target insomnia, depression and poor appetite. 3. At this moment we will not consider to use antipsychotics since he has started with Remeron. 4. Klonopin 0.5 p.o. t.i.d. p.r.n. severe anxiety. 5. Klonopin 0.25 p.o. t.i.d. standing 6. Start working on discharge planning to the community with enough services. Reason for contiued inpatient stay Substantial Risk for: inability to function, rapid decompensation and med/psych decompensation Time Spent With Patient Time: Total time managing care of this patient today _20___ minutes.
[2022-09-05 18:00] VITALS: BP 95/56; PULSE 80; RESP 18; TEMP 36.6; O2SAT 98
[2022-09-05] MEDS: Mirtazapine 15 MG TABLET PO (20:36)
[2022-09-06 06:00] VITALS: BP 117/73; PULSE 100; RESP 14; TEMP 36.3; O2SAT 99
[2022-09-06] MEDS: Atorvastatin Calcium 20 MG TABLET PO (09:38)
[2022-09-06] MEDS: Cholecalciferol (Vitamin D3) 25 MCG TABLET PO (09:38)
[2022-09-06] MEDS: Multivitamin TABLET 1 TAB PO (09:40)
--- NOTE | 2022-09-06 11:49 | P.PNPSI_ITS ---
Subjective Subjective Date of Service: 09/06/22 Reason For Visit: Unspecified depressive disorder Subjective Notes: Conditional Voluntary Interim History: The nursing staff reported the patient has been fully compliant with treatment, it was noticeable that his anxiety has diminished but still he has some residual symptoms. On interview who reports an improvement of his mood and he is future oriented. Even though, whenever we have to do complex tasks he takes longer and gets overwhelmed with anxiety. Mental Status Exam Mental Status Exam Patient Appearance: Appropriate Patient Orientation: Person and Situation Level of Consciousness: Awake and Appropriate Patient Behavior: Guarded and Passive Mood Description: Withdrawn Affect Description: Constricted Patient Cognition Impaired: Yes Ability to Follow Directions: Good Speech Pattern: Clear Hallucinations: None Delusions: Not Present Thought Process: Linear and Slowed Thinking Thought Content: positive for [place] and positive for Circumstantial Judgement: Fair Diagnostics Vital Signs (24Hr): Vital Signs - 24 hr 09/05/22 18:00 09/06/22 06:00 Temperature 98 F 97.3 F Pulse Rate 80 100 Respiratory Rate 18 14 Blood Pressure 95/56 L 117/73 Pulse Oximetry 98 99 Oxygen Delivery Method Room Air Room Air BMI result Body Mass Index 16.7 Labs 08/27/22 18:40 08/28/22 06:25 Medications Medications Current Medications Acetaminophen (Acetaminophen 325 Mg Tablet) 650 mg PO Q6H PRN PRN Reason: Headache/Pain Mild Scale (1-3) Al Hydroxide/Mg Hydroxide (Magnesium Hydrox/Alum Hydrox 30 Ml Oral.Susp) 30 ml PO Q6H PRN PRN Reason: Heartburn/Nausea Atorvastatin Calcium (Atorvastatin Calcium 20 Mg Tablet) 20 mg PO DAILY [facility] Last Admin: 09/06/22 09:38 Dose: 20 mg Calcium Carbonate (Calcium Carbonate 500 Mg Tablet) 250 mg PO DAILY [facility] Last Admin: 09/06/22 09:38 Dose: 250 mg Clonazepam (Clonazepam 0.5 Mg Tablet) 0.5 mg PO TID PRN PRN Reason: severe anxiety Last Admin: 09/01/22 14:58 Dose: 0.5 mg Clonazepam (Clonazepam 0.125 Mg Tab.Rapdis) 0.25 mg PO TID [facility] Last Admin: 09/06/22 09:38 Dose: 0.25 mg Hydroxyzine HCl (Hydroxyzine Hcl 25 Mg Tablet) 25 mg PO Q6H PRN PRN Reason: Anxiety Last Admin: 08/28/22 13:31 Dose: 25 mg Magnesium Hydroxide (Milk Of Magnesia 30 Ml Oral.Susp) 30 ml PO DAILY PRN PRN Reason: Constipation Mirtazapine (Mirtazapine 15 Mg Tablet) 15 mg PO BEDTIME [facility] Last Admin: 09/05/22 20:36 Dose: 15 mg Multivitamins/Vitamin C (Multivitamin Tablet) 1 tab PO DAILY [facility] Last Admin: 09/06/22 09:40 Dose: 1 tab Trazodone HCl (Trazodone Hcl 50 Mg Tablet) 50 mg PO BEDTIME PRN PRN Reason: Insomnia Vitamin D (Cholecalciferol (Vitamin D3) 25 Mcg Tablet) 25 mcg PO DAILY [facility] Last Admin: 09/06/22 09:38 Dose: 25 mcg Allergies Allergies Allergy/AdvReac Type Severity Reaction Status Date / Time No Known Allergies Allergy Verified 08/27/22 16:20 Assessment & Plan Assessment & Plan (1) Major depressive disorder, recurrent: Status: Acute Code(s): F33.9 - Major depressive disorder, recurrent, unspecified (2) Malnutrition: Status: Acute Code(s): E46 - Unspecified protein-calorie malnutrition Plan Pt is a 67-year-old male with a PMH significant for depression, glaucoma, and HLD who is seen for admission H&P. Malnutrition Pt stopped eating 4 weeks ago, losing 40lbs Restarted eating and drinking one small meal a day 6 days ago CBC, CMB Monitor lytes, especially phosphorus, as pt is in danger of refeeding syndrome Nutrition consult Encourage daily ambulation to rebuild lower body strength HLD Pt has stopped taking statin Lipid panel Glaucoma Pt no longer on meds Pt not complaining of ocular pain or vision changes, seems stable F/U outpatient with PCP Mental Health As per psychiatry plan Thank you for allowing me to participate in the care of this pt. We will follow for now pending labs and nutrition consult. Psychiatry Plan 1. Gather collateral information. 2. Continue Remeron 15 mg p.o. q.h.s. to target insomnia, depression and poor appetite. 3. At this moment we will not consider to use antipsychotics since he has started with Remeron. 4. Klonopin 0.5 p.o. t.i.d. p.r.n. severe anxiety. 5. Klonopin 0.25 p.o. t.i.d. standing 6. Start working on discharge planning to the community with enough services. Reason for contiued inpatient stay Substantial Risk for: inability to function, rapid decompensation and med/psych decompensation Time Spent With Patient Time: Total time managing care of this patient today __20__ minutes.
[2022-09-06 18:00] VITALS: BP 110/64; PULSE 75; RESP 16; TEMP 36.2; O2SAT 99
[2022-09-06] MEDS: Mirtazapine 15 MG TABLET PO (20:44)
[2022-09-07 06:00] VITALS: BP 143/70; PULSE 98; RESP 16; TEMP 36.2; O2SAT 99
[2022-09-07] MEDS: Cholecalciferol (Vitamin D3) 25 MCG TABLET PO (09:30)
[2022-09-07] MEDS: Atorvastatin Calcium 20 MG TABLET PO (09:30)
[2022-09-07] MEDS: Multivitamin TABLET 1 TAB PO (09:30)
--- NOTE | 2022-09-07 14:45 | P.PNPSI_ITS ---
Subjective Subjective Date of Service: 09/07/22 Reason For Visit: Unspecified depressive disorder Subjective Notes: Conditional Voluntary Interim History: The nursing staff reported full compliance with treatment, he slept well and ate all his meals. The staff reported that his mood is brighter. On interview he is feeling better, anxious at times. Mental Status Exam Mental Status Exam Patient Appearance: Well Grooomed and Appropriate Patient Orientation: Person, Place and Situation Level of Consciousness: Awake and Appropriate Patient Behavior: Cooperative Mood Description: Withdrawn and Anxious Affect Description: Calm Patient Cognition Impaired: No Ability to Follow Directions: Good Speech Pattern: Clear Hallucinations: None Delusions: Not Present Thought Process: Linear Thought Content: positive for Circumstantial Judgement: Fair Diagnostics Vital Signs (24Hr): Vital Signs - 24 hr 09/06/22 18:00 09/07/22 06:00 Temperature 97.1 F 97.2 F Pulse Rate 75 98 Respiratory Rate 16 16 Blood Pressure 110/64 143/70 H Pulse Oximetry 99 99 Oxygen Delivery Method Room Air Room Air BMI result Body Mass Index 16.7 Labs 08/27/22 18:40 08/28/22 06:25 Medications Medications Current Medications Acetaminophen (Acetaminophen 325 Mg Tablet) 650 mg PO Q6H PRN PRN Reason: Headache/Pain Mild Scale (1-3) Al Hydroxide/Mg Hydroxide (Magnesium Hydrox/Alum Hydrox 30 Ml Oral.Susp) 30 ml PO Q6H PRN PRN Reason: Heartburn/Nausea Atorvastatin Calcium (Atorvastatin Calcium 20 Mg Tablet) 20 mg PO DAILY [facility] Last Admin: 09/07/22 09:30 Dose: 20 mg Calcium Carbonate (Calcium Carbonate 500 Mg Tablet) 250 mg PO DAILY [facility] Last Admin: 09/07/22 09:29 Dose: 250 mg Clonazepam (Clonazepam 0.125 Mg Tab.Rapdis) 0.25 mg PO TID [facility] Last Admin: 09/07/22 09:30 Dose: 0.25 mg Hydroxyzine HCl (Hydroxyzine Hcl 25 Mg Tablet) 25 mg PO Q6H PRN PRN Reason: Anxiety Last Admin: 08/28/22 13:31 Dose: 25 mg Magnesium Hydroxide (Milk Of Magnesia 30 Ml Oral.Susp) 30 ml PO DAILY PRN PRN Reason: Constipation Mirtazapine (Mirtazapine 15 Mg Tablet) 15 mg PO BEDTIME [facility] Last Admin: 09/06/22 20:44 Dose: 15 mg Multivitamins/Vitamin C (Multivitamin Tablet) 1 tab PO DAILY [facility] Last Admin: 09/07/22 09:30 Dose: 1 tab Trazodone HCl (Trazodone Hcl 50 Mg Tablet) 50 mg PO BEDTIME PRN PRN Reason: Insomnia Vitamin D (Cholecalciferol (Vitamin D3) 25 Mcg Tablet) 25 mcg PO DAILY [facility] Last Admin: 09/07/22 09:30 Dose: 25 mcg Allergies Allergies Allergy/AdvReac Type Severity Reaction Status Date / Time No Known Allergies Allergy Verified 08/27/22 16:20 Assessment & Plan Assessment & Plan (1) Major depressive disorder, recurrent: Status: Acute Code(s): F33.9 - Major depressive disorder, recurrent, unspecified (2) Malnutrition: Status: Acute Code(s): E46 - Unspecified protein-calorie malnutrition Plan Pt is a 67-year-old male with a PMH significant for depression, glaucoma, and HLD who is seen for admission H&P. Malnutrition Pt stopped eating 4 weeks ago, losing 40lbs Restarted eating and drinking one small meal a day 6 days ago CBC, CMB Monitor lytes, especially phosphorus, as pt is in danger of refeeding syndrome Nutrition consult Encourage daily ambulation to rebuild lower body strength HLD Pt has stopped taking statin Lipid panel Glaucoma Pt no longer on meds Pt not complaining of ocular pain or vision changes, seems stable F/U outpatient with PCP Mental Health As per psychiatry plan Thank you for allowing me to participate in the care of this pt. We will follow for now pending labs and nutrition consult. Psychiatry Plan 1. Gather collateral information. 2. Continue Remeron 15 mg p.o. q.h.s. to target insomnia, depression and poor appetite. 3. At this moment we will not consider to use antipsychotics since he has started with Remeron. 4. Klonopin 0.5 p.o. t.i.d. p.r.n. severe anxiety. 5. Klonopin 0.25 p.o. t.i.d. standing 6. Start working on discharge planning to the community with enough services. Probably D/C for Monday. Reason for contiued inpatient stay Substantial Risk for: inability to function, rapid decompensation and med/psych decompensation Time Spent With Patient Time: Total time managing care of this patient today _20___ minutes.
[2022-09-07 18:00] VITALS: BP 122/65; PULSE 76; RESP 16; TEMP 36.2; O2SAT 98
[2022-09-07] MEDS: Mirtazapine 15 MG TABLET PO (20:18)
[2022-09-07] MEDS: traZODone HCL 50 MG TABLET PO (20:18)
[2022-09-08 07:30] VITALS: BP 131/80; PULSE 86; RESP 16; TEMP 36.6; O2SAT 100
[2022-09-08] MEDS: Atorvastatin Calcium 20 MG TABLET PO (08:04)
[2022-09-08] MEDS: Multivitamin TABLET 1 TAB PO (08:04)
[2022-09-08] MEDS: Cholecalciferol (Vitamin D3) 25 MCG TABLET PO (08:05)
--- NOTE | 2022-09-08 11:00 | P.PNPSI_ITS ---
Subjective Subjective Date of Service: 09/08/22 Reason For Visit: Unspecified depressive disorder Subjective Notes: Conditional Voluntary Interim History: The nursing staff reported the patient had been compliant with treatment, he has attended to groups and his much better. Today on interview he denies new symptoms no respiratory symptoms but we are going to tested him for COVID 19. Mental Status Exam Mental Status Exam Patient Appearance: Well Grooomed Patient Orientation: Person and Situation Level of Consciousness: Awake and Appropriate Patient Behavior: Passive Affect Description: Calm Patient Cognition Impaired: Yes Ability to Follow Directions: Good Speech Pattern: Clear Hallucinations: None Delusions: Not Present Thought Process: Linear Thought Content: positive for Circumstantial Judgement: Fair Diagnostics Vital Signs (24Hr): Vital Signs - 24 hr 09/07/22 18:00 09/08/22 07:30 Temperature 97.2 F 97.9 F Pulse Rate 76 86 Respiratory Rate 16 16 Blood Pressure 122/65 131/80 Pulse Oximetry 98 100 Oxygen Delivery Method Room Air Room Air BMI result Body Mass Index 16.7 Labs 08/27/22 18:40 08/28/22 06:25 Medications Medications Current Medications Acetaminophen (Acetaminophen 325 Mg Tablet) 650 mg PO Q6H PRN PRN Reason: Headache/Pain Mild Scale (1-3) Al Hydroxide/Mg Hydroxide (Magnesium Hydrox/Alum Hydrox 30 Ml Oral.Susp) 30 ml PO Q6H PRN PRN Reason: Heartburn/Nausea Atorvastatin Calcium (Atorvastatin Calcium 20 Mg Tablet) 20 mg PO DAILY [facility] Last Admin: 09/08/22 08:04 Dose: 20 mg Calcium Carbonate (Calcium Carbonate 500 Mg Tablet) 250 mg PO DAILY [facility] Last Admin: 09/08/22 08:04 Dose: 250 mg Clonazepam (Clonazepam 0.125 Mg Tab.Rapdis) 0.25 mg PO TID [facility] Last Admin: 09/08/22 09:48 Dose: 0.25 mg Hydroxyzine HCl (Hydroxyzine Hcl 25 Mg Tablet) 25 mg PO Q6H PRN PRN Reason: Anxiety Last Admin: 08/28/22 13:31 Dose: 25 mg Magnesium Hydroxide (Milk Of Magnesia 30 Ml Oral.Susp) 30 ml PO DAILY PRN PRN Reason: Constipation Mirtazapine (Mirtazapine 15 Mg Tablet) 15 mg PO BEDTIME [facility] Last Admin: 09/07/22 20:18 Dose: 15 mg Multivitamins/Vitamin C (Multivitamin Tablet) 1 tab PO DAILY [facility] Last Admin: 09/08/22 08:04 Dose: 1 tab Trazodone HCl (Trazodone Hcl 50 Mg Tablet) 50 mg PO BEDTIME PRN PRN Reason: Insomnia Last Admin: 09/07/22 20:18 Dose: 50 mg Vitamin D (Cholecalciferol (Vitamin D3) 25 Mcg Tablet) 25 mcg PO DAILY [facility] Last Admin: 09/08/22 08:05 Dose: 25 mcg Allergies Allergies Allergy/AdvReac Type Severity Reaction Status Date / Time No Known Allergies Allergy Verified 08/27/22 16:20 Assessment & Plan Assessment & Plan (1) Major depressive disorder, recurrent: Status: Acute Code(s): F33.9 - Major depressive disorder, recurrent, unspecified (2) Malnutrition: Status: Acute Code(s): E46 - Unspecified protein-calorie malnutrition Plan Pt is a 67-year-old male with a PMH significant for depression, glaucoma, and HLD who is seen for admission H&P. Malnutrition Pt stopped eating 4 weeks ago, losing 40lbs Restarted eating and drinking one small meal a day 6 days ago CBC, CMB Monitor lytes, especially phosphorus, as pt is in danger of refeeding syndrome Nutrition consult Encourage daily ambulation to rebuild lower body strength HLD Pt has stopped taking statin Lipid panel Glaucoma Pt no longer on meds Pt not complaining of ocular pain or vision changes, seems stable F/U outpatient with PCP Mental Health As per psychiatry plan Thank you for allowing me to participate in the care of this pt. We will follow for now pending labs and nutrition consult. Psychiatry Plan 1. Gather collateral information. 2. Continue Remeron 15 mg p.o. q.h.s. to target insomnia, depression and poor appetite. 3. At this moment we will not consider to use antipsychotics since he has started with Remeron. 4. Klonopin 0.5 p.o. t.i.d. p.r.n. severe anxiety. 5. Klonopin 0.25 p.o. t.i.d. standing 6. Start working on discharge planning to the community with enough services. Probably D/C for Monday. 7. COVID test Reason for contiued inpatient stay Substantial Risk for: inability to function, rapid decompensation and med/psych decompensation Time Spent With Patient Time: Total time managing care of this patient today __20__ minutes.
[2022-09-08 12:11] LABS: COVID-19 Test Negative (Negative); IDNOW Serial# 9DB6401D
[2022-09-08 18:00] VITALS: BP 111/64; PULSE 64; RESP 16; TEMP 36.2; O2SAT 99
[2022-09-08] MEDS: Mirtazapine 15 MG TABLET PO (19:37)
[2022-09-09 08:03] VITALS: BP 102/59; PULSE 86; RESP 16; TEMP 36.3; O2SAT 97
--- NOTE | 2022-09-09 08:19 | P.DS_ITS ---
DS: Providers Provider Date of Service: 09/09/22 Date of admission: 08/27/22 15:57 Date of discharge: 09/09/22 Primary care physician: Vu Lepe MD Consults: 08/27/22 16:20 Consult to Hospitalist Routine Consulting Provider: Hospitalist Reason For Exam: direct admission DS: Diagnosis Discharge Diagnosis (1) Major depressive disorder, recurrent: Status: Acute (2) Malnutrition: Status: Acute DS: Medications Discharge Medications Home Medications: Home Medications Medication Instructions Recorded Confirmed atorvastatin 20 mg tablet 20 mg PO DAILY 08/27/22 08/27/22 calcium carbonate 200 mg calcium 200 mg PO QAM 08/27/22 08/27/22 (500 mg) chewable tablet cholecalciferol (vitamin D3) 25 25 mcg PO DAILY 08/27/22 08/27/22 mcg (1,000 unit) tablet mirtazapine 15 mg tablet 15 mg PO BEDTIME 08/27/22 08/27/22 multivitamin 2 tab QAM 08/27/22 08/27/22 Mental Status Exam Mental Status Exam Patient Appearance: Well Grooomed and Appropriate Patient Orientation: Person and Situation Level of Consciousness: Awake and Appropriate Patient Behavior: Cooperative Mood Description: Calm Affect Description: Constricted and Nervous Ability to Follow Directions: Good Speech Pattern: Clear Hallucinations: None Delusions: Not Present Thought Process: Linear Thought Content: positive for [place] and positive for Circumstantial Judgement: Fair Data Data Completed and Pending Completed studies during hospitalization [Text1]: 09/08/22 11:30 COVID-19 (MARCIA) Negative COVID-19 Clin Com See Note DS: Summary Hospital Course Hospital Course: The patient was admitted for exacerbation of depression and anxiety with suicidal ideation, please see the HPI note for further details on admission. The patient at baseline has some limited social support that he has never been formally treated for depression. On admission, we review his list of medications and even though that he was extremely anxious and depressed, to the point the sometimes could be seen as paranoia we started on Remeron titrated up to 50 mg p.o. q.h.s. and Klonopin 0.25 p.o. t.i.d. pleasant p.r.n.. The patient improved slowly, his anxiety was more manageable and eventually he was able to sleep well and his appetite improved. The patient had lost a lot of weight before of the admission. The occupational therapist did cognitive assessments and his Harish test was slightly low. Even though, he was able to participating groups, he was future oriented and he was able to contract for safety. The group social worker reported that his family is, especially his brother, is very involved in his care, but he lives in [place]. He has anxiety precludes him to be more functional and he needs more help. The patient's mood improved, there were no safety concerns and he has anxiety was under control. Since there were no safety concerns discharge planning was discussed. Time spent discussing smoking cessation with patient: 3 to 10 minutes Status at Discharge Cognitive/behavioral status at discharge: At baseline Functional status at discharge: independent ambulation Overall status at discharge: patient is back to baseline Time Spent with Patient Time attestation: Total time managing care of this patient today ___25_ minutes. Time spent: Less than 30 minutes Discharge Plan Discharge Anticipated Discharge Date/Time: 09/09/22 10:23 Patient Disposition: Home, Self-Care Discharge Diagnosis: Major depressive disorder recurrent episode severe Referrals: [facility] [Other] - 09/09/22 (Referral was placed for therapy and psychiatry and the office will contact you to set up appointment. There may be a period of time for a waitlist. Renee the clinical specialist medical device will contact you tomorrow to schedule first therapy appointment. ) [facility] [Other] - 3-5 Days (Call placed for referral to [facility] for state home care (homemaking and meals on wheels). [facility] to contact you directly for visit. ) [facility] [Other] - 09/09/22 (You have been assigned a Behavioral Health manager track and her name is Carina No. She will contact you following discharge to discuss additional resources and provide telephonic outreach. ) Vu Lepe MD [Primary Care Provider] - 1 Week Discharge Medications: New multivitamin [Daily-Shivani] Tablet 1 tab PO DAILY 30 Days Qty: 30 0RF trazodone 50 mg Tablet 50 mg PO BEDTIME PRN (Reason: Insomnia) 30 Days Qty: 30 0RF clonazepam 0.125 mg Tablet,Disintegrating 0.25 mg PO TID 30 Days Qty: 180 0RF Continued atorvastatin 20 mg Tablet 20 mg PO DAILY 30 Days Qty: 30 0RF calcium carbonate 200 mg calcium (500 mg) Tablet,Chewable 200 mg PO QAM 30 Days Qty: 30 0RF mirtazapine 15 mg Tablet 15 mg PO BEDTIME 30 Days Qty: 30 0RF cholecalciferol (vitamin D3) 25 mcg (1,000 unit) Tablet 25 mcg PO DAILY 30 Days Qty: 30 0RF Discontinued multivitamin Tablet,Chewable 2 tab QAM Discharge Orders: Discharge Order (Routine); Ordered 09/09/22 Ordered By: Meet Bridges Diet: Advance to usual diet Activity on Discharge: As tolerated Stand Alone Forms: Patient Portal Discharge page Care Plan Goals: Care plan goals achieved in this admission Health Concerns: Continue treatment with primary care physician as an outpatient Plan of Treatment: Continue psychiatric treatment as an outpatient Assessment: Elderly male with a long history of major depressive disorder who was not treated admitted for exacerbation of depression with neurovegetative symptoms and anxiety. The patient responded fairly well to Remeron and Klonopin. At this moment safe to be the community.
[2022-09-09] MEDS: Cholecalciferol (Vitamin D3) 25 MCG TABLET PO (08:39)
[2022-09-09] MEDS: Atorvastatin Calcium 20 MG TABLET PO (08:40)
[2022-09-09] MEDS: Multivitamin TABLET 1 TAB PO (08:40)
--- NOTE | 2022-09-09 10:39 | PC.NURSE ---
Pt alert and oriented x4. no SI/HI since admission. Reviewed paperwork instructions and medications with pt. Pt verbalizes understanding. To FU with providers. Information faxed to all providers. Pt anxious about discharge. Medication scripts given to pt. This ns asking if pt wanting me to call family members with dc instructions. pt declined. Ambulated to front door with friend taking pt home.
== END 2022-09-09 10:35 | disposition home or self-care (01) | DRG 885 ==
PROVIDERS: Student in an Organized Health Care Education/Training Program; Admitting Provider Psychiatry & Neurology Psychiatry; PCP Family Medicine; Visit Provider Psychiatry & Neurology Psychiatry
DX: F33.2 Major depressive disorder, recurrent severe without psychotic features (principal); R45.851 Suicidal ideations; E46 Unspecified protein-calorie malnutrition; Z68.1 Body mass index [BMI] 19.9 or less, adult; E78.00 Pure hypercholesterolemia, unspecified; H40.9 Unspecified glaucoma; Z20.822 Contact with and (suspected) exposure to COVID-19; Z62.810 Personal history of physical and sexual abuse in childhood; Z87.891 Personal history of nicotine dependence; Z79.899 Other long term (current) drug therapy
CPT/HCPCS: 36415; 80053; 80061; 84100; 85027; 87635